=== PATIENT | female | born 1965 | race Two or more races ===

== ENCOUNTER 2018-02-06 17:34 | Emergency (ER) | END 2018-02-06 20:54 | disposition home or self-care (01) ==

== ENCOUNTER 2019-01-04 20:39 | Emergency (ER) | payer MEDICAID ==
[~2019-01-04] VITALS: Ht 149.9 cm; Wt 69.1 kg
[~2019-01-04 20:39] MED LIST: CEPH-443 PO; NAPR-985 PO; TRAM50TA2 PO
[2019-01-04 20:42] VITALS: Ht 149.9 cm; Wt 69.1 kg
[2019-01-04] MEDS ORDERED: SOD CHLORIDE 0.9% 500 ML IV STA (23:47)
[2019-01-04] MEDS ORDERED: morphine 4 MG/ML VIAL IV STA (23:47)
[2019-01-04] MEDS ORDERED: ONDANSETRON 4 MG INJ IV STA (23:47)
[2019-01-05 01:24] VITALS: BP 107/61; PULSE 60; RESP 20
== END 2019-01-05 01:24 | disposition home or self-care (01) ==
LOC: E/R 20:39
DX: R10.11 Right upper quadrant pain (principal); R11.0 Nausea
CPT/HCPCS: 36415; 76705; 80053; 81001; 83690; 85025; 96361; 96374; 96375; J2270; J2405; J7040; Z7502